=== PATIENT | female | born 1990 | race African-American/Black ===

== ENCOUNTER 2017-02-28 00:52 | Emergency (ER) | payer OTHER ==
[~2017-02-28] VITALS: Ht 167.6 cm; Wt 63.5 kg
[2017-02-28 02:00] LABS: ABSOLUTE NEUTROPHILS 4.9 thou/uL (1.4-8.2); BASOPHILS 0.5 % (0.0-2.0); EOSINOPHILS 0.7 % (0.0-3.0); HEMATOCRIT 39.1 % (37.0-47.0); HEMOGLOBIN 13.8 gm/dL (12.0-15.0); LYMPHOCYTES 34.6 % (24.0-44.0); MCHC 35.3 g/dL (28.0-37.0); MCV 79.5 fL (80.0-100.0); PLATELET COUNT 283 thou/uL (150-400); POLYS 58.2 % (36.0-66.0); RBC 4.92 mil/uL (4.20-5.00); RDW 14.4 % (10.5-14.5); WBC 8.4 thou/uL (4.0-11.0)
[2017-02-28 02:04] LABS: MANUAL DIFF NO
[2017-02-28 02:11] LABS: CALCIUM 8.9 mg/dL (8.5-10.1); CREATININE 0.8 mg/dL (0.6-1.0); POTASSIUM 3.3 mmol/L (3.5-5.1)
[2017-02-28 02:19] LABS: ABSOLUTE RETIC COUNT 0.0488 10^6/uL; OBSERVED RETIC COUNT 1.01 % (0.6-2.6)
[2017-02-28] MEDS ORDERED: PERCOCET 10-321 EACH PO (03:24)
[2017-02-28] MEDS ORDERED: MOBIC15 MG PO (03:24)
[2017-02-28 03:39] VITALS: BP 123/75
== END 2017-02-28 03:51 | disposition home or self-care (01) ==
LOC: ER 00:52
PROVIDERS: Emergency Medicine
DX: D57.00 Hb-SS disease with crisis, unspecified (principal); K50.90 Crohn's disease, unspecified, without complications; Z88.1 Allergy status to other antibiotic agents; Z88.5 Allergy status to narcotic agent

== ENCOUNTER 2017-03-06 23:22 | Emergency (ER) | payer OTHER ==
[~2017-03-06] VITALS: Ht 167.6 cm; Wt 63.5 kg
[~2017-03-06 23:22] MED LIST: MOBIC15 MG PO; PERCOCET 10-321 EACH PO
[2017-03-07] MEDS ORDERED: FLEXERIL PO (00:02)
[2017-03-07] MEDS ORDERED: FOLIC ACID1 MG PO (00:02)
[2017-03-07] MEDS ORDERED: BENTYL 20 MG TA20 M1 PO (00:03)
[2017-03-07] MEDS ORDERED: VALIUM5 MG PO (02:35)
[2017-03-07] MEDS ORDERED: PERCOCET 5-3251 EACH PO (02:35)
[2017-03-07 03:49] VITALS: BP 123/81
== END 2017-03-07 02:36 ==
LOC: ER 23:22
DX: D57.00 Hb-SS disease with crisis, unspecified (principal); K50.90 Crohn's disease, unspecified, without complications; Z88.1 Allergy status to other antibiotic agents; Z88.5 Allergy status to narcotic agent

== ENCOUNTER 2017-04-10 11:34 | Emergency (ER) | payer OTHER ==
[~2017-04-10] VITALS: Ht 167.6 cm; Wt 59.0 kg
[~2017-04-10 11:34] MED LIST changes: +BENTYL 20 MG TA20 M1 PO; +FLEXERIL PO; +FOLIC ACID1 MG PO; +PERCOCET 5-3251 EACH PO; +VALIUM5 MG PO
[2017-04-10] MEDS ORDERED: ASACOL HD800 MG PO (11:54)
[2017-04-10 13:14] LABS: ABSOLUTE NEUTROPHILS 3.4 thou/uL (1.4-8.2); BASOPHILS 0.8 % (0.0-2.0); EOSINOPHILS 0.6 % (0.0-3.0); HEMOGLOBIN 12.2 gm/dL (12.0-15.0); LYMPHOCYTES 34.8 % (24.0-44.0); MCH 28.1 pg (26.0-34.0); MCHC 34.8 g/dL (28.0-37.0); MCV 80.7 fL (80.0-100.0); PLATELET COUNT 235 thou/uL (150-400); POLYS 57.8 % (36.0-66.0); RBC 4.34 mil/uL (4.20-5.00); WBC 5.9 thou/uL (4.0-11.0)
[2017-04-10 13:18] LABS: MANUAL DIFF NO
[2017-04-10] MEDS ORDERED: TIZANIDINE HCL4 MG PO (14:49)
[2017-04-10 14:55] VITALS: BP 130/76
[2017-04-10] MEDS ORDERED: PERCOCET PO (15:10)
== END 2017-04-10 15:37 | disposition home or self-care (01) ==
LOC: ER 11:34
PROVIDERS: Nurse Practitioner
DX: M54.2 Cervicalgia (principal); M54.9 Dorsalgia, unspecified; M25.511 Pain in right shoulder; K50.90 Crohn's disease, unspecified, without complications; Z88.1 Allergy status to other antibiotic agents; Z88.5 Allergy status to narcotic agent; V49.40XA Driver injured in collision with unspecified motor vehicles in traffic accident, initial encounter; Y93.89 Activity, other specified; Y92.89 Other specified places as the place of occurrence of the external cause; Y99.8 Other external cause status

== ENCOUNTER 2017-05-17 23:25 | Emergency (ER) | payer OTHER ==
[~2017-05-17] VITALS: Ht 165.1 cm; Wt 59.0 kg
[~2017-05-17 23:25] MED LIST changes: +ASACOL HD800 MG PO; +PERCOCET PO; +TIZANIDINE HCL4 MG PO
[2017-05-17] MEDS ORDERED: PREDNISONE 20 M20 MG PO (23:50)
[2017-05-17] MEDS ORDERED: XANAX1 MG PO (23:51)
[2017-05-18] MEDS ORDERED: NORCO 5-325 TA1 EACH PO (00:25)
[2017-05-18 01:21] VITALS: BP 128/80
== END 2017-05-18 01:23 | disposition home or self-care (01) ==
LOC: ER 23:25
DX: D57.00 Hb-SS disease with crisis, unspecified (principal); K50.90 Crohn's disease, unspecified, without complications; G43.909 Migraine, unspecified, not intractable, without status migrainosus; F17.210 Nicotine dependence, cigarettes, uncomplicated; Z88.1 Allergy status to other antibiotic agents; Z88.5 Allergy status to narcotic agent

== ENCOUNTER 2017-06-16 11:55 | Emergency (ER) | payer OTHER ==
[~2017-06-16] VITALS: Ht 165.1 cm; Wt 59.0 kg
[~2017-06-16 11:55] MED LIST changes: +NORCO 5-325 TA1 EACH PO; +PREDNISONE 20 M20 MG PO; +XANAX1 MG PO
[2017-06-16 12:04] VITALS: BP 1234/96
[2017-06-16 12:47] LABS: AMP/METHAMP Negative (Negative); BARBITURATES Negative (Negative); BENZODIAZEPINES POSITIVE (Negative); COCAINE Negative (Negative); METHADONE Negative (Negative); OPIATES Negative (Negative); PCP Negative (Negative); THC POSITIVE (Negative)
[2017-06-16 14:09] LABS: ABSOLUTE NEUTROPHILS 3.8 thou/uL (1.4-8.2); BASOPHILS 0.5 % (0.0-2.0); EOSINOPHILS 1.4 % (0.0-3.0); HEMATOCRIT 38.6 % (37.0-47.0); HEMOGLOBIN 13.3 gm/dL (12.0-15.0); LYMPHOCYTES 35.3 % (24.0-44.0); MCH 27.8 pg (26.0-34.0); MCHC 34.6 g/dL (28.0-37.0); MCV 80.4 fL (80.0-100.0); MONOCYTES 7.1 % (1.0-8.0); PLATELET COUNT 310 thou/uL (150-400); POLYS 55.7 % (36.0-66.0); RBC 4.79 mil/uL (4.20-5.00); RDW 14.6 % (10.5-14.5); WBC 6.8 thou/uL (4.0-11.0)
[2017-06-16 14:11] LABS: MANUAL DIFF NO
[2017-06-16 14:15] LABS: OBSERVED RETIC COUNT 0.77 % (0.6-2.6)
[2017-06-16 14:18] LABS: ANION GAP 6 mmol/L (7-16); BUN 8 mg/dL (7-18); CALCIUM 8.6 mg/dL (8.5-10.1); CHLORIDE 105 mmol/L (98-107); CO2 29 mmol/L (21-32); CREATININE 0.8 mg/dL (0.6-1.0); GLUCOSE 96 mg/dL (74-106); POTASSIUM 3.4 mmol/L (3.5-5.1); SODIUM 140 mmol/L (136-145)
[2017-06-16 14:24] LABS: ALKALINE PHOSPHATASE 45 U/L (46-116); DIRECT BILIRUBIN < 0.1 mg/dL (<0.1-0.3); SGOT 15 U/L (15-37); SGPT 17 U/L (30-65); TOTAL BILIRUBIN 0.2 mg/dL (<0.1-1.0); TOTAL PROTEIN 7.4 g/dL (6.4-8.2)
[2017-06-16] MEDS ORDERED: PREDNISONE 20 M20 MG PO (14:48)
[2017-06-16] MEDS ORDERED: BENTYL 20 MG TA20 M1 PO (14:48)
[2017-06-20 15:12] LABS: HB-F 0 % (0.0-2.0); HGB ELECTROPH. COMMENT Note: (()); Hgb A 58.1 % (94.0-98.0); Hgb C 38.7 % (0.0)
== END 2017-06-16 15:11 | disposition home or self-care (01) ==
LOC: ER 11:55
PROVIDERS: Emergency Medicine
DX: K50.90 Crohn's disease, unspecified, without complications (principal); R19.7 Diarrhea, unspecified; M25.50 Pain in unspecified joint; G43.909 Migraine, unspecified, not intractable, without status migrainosus; F17.210 Nicotine dependence, cigarettes, uncomplicated; Z88.0 Allergy status to penicillin; Z88.5 Allergy status to narcotic agent

== ENCOUNTER 2017-08-15 23:57 | Emergency (ER) | payer OTHER ==
[~2017-08-15] VITALS: Ht 165.1 cm; Wt 59.0 kg
[2017-08-16 00:04] VITALS: BP 148/97
== END 2017-08-16 00:53 | disposition home or self-care (01) ==
LOC: ER 23:57
DX: J30.9 Allergic rhinitis, unspecified (principal); R52 Pain, unspecified; G43.909 Migraine, unspecified, not intractable, without status migrainosus; F17.210 Nicotine dependence, cigarettes, uncomplicated; Z88.1 Allergy status to other antibiotic agents; Z88.5 Allergy status to narcotic agent

== ENCOUNTER 2018-01-08 20:48 | Inpatient (IN) | payer OTHER ==
[~2018-01-08] VITALS: Ht 165.1 cm; Wt 55.6 kg
--- NOTE | ~2018-01-08 | HC ---
[facility] [address] [address] CONSULTATION Name: AYSELYNDONKAMALA L Room #: 427-P [facility] M.R.#: [id number] Admission: 01/09/18 Attend Phys: Edgardo Farooq Discharge: Date of : 86 Report #: [id number] THIS REPORT FOR: //name// CC: [facility] physician/PCP Edgardo Farooq DATE OF SERVICE: 01/09/2018 REASON FOR CONSULTATION: I was asked to evaluate concerning peritonitis following perforated prepyloric peptic ulcer with bile peritonitis in the setting of Crohn's disease and sickle cell disease. HISTORY OF PRESENT ILLNESS: The patient is a 27-year-old with underlying longstanding Crohn's disease on 20-60 mg of prednisone a day who over the last week has had GI upset with nausea and vomiting. She then developed acute onset of abdominal pain associated with low grade fever. Poor oral intake. Stools have been loose. Initially, had vomiting, but that subsided. She has been on prednisone and Asacol for Crohn's disease. No biologic agents have been given. She went to surgery today for repair of the peptic ulcer perforation with diagnostic laparoscopy and modified Jaden patch repair. Gastric ulcer biopsy was performed. Left with a AVELINO drain. Cultures were obtained. ALLERGIES: CLINDAMYCIN, AMOXICILLIN, MORPHINE. MEDICATIONS: As noted on her MAR including 20 mg of prednisone a day, mesalamine, Flexeril, folic acid, Bentyl, Xanax. She was given meropenem perioperatively. PAST MEDICAL HISTORY: Includes Crohn's disease, sickle cell disease, migraine headaches. FAMILY HISTORY: Noncontributory. SOCIAL HISTORY: Smoker of cigarettes. No significant alcohol intake. She had been residing in [place], moved back to [place] in the last year. She has not established primary care or GI care in [place] yet. REVIEW OF SYSTEMS: No cough or sputum production. She feels that her sickle cell has flared up some with joint pain. No dysuria or frequency. PHYSICAL EXAMINATION: VITAL SIGNS: Afebrile and hemodynamically stable, alert and cooperative. NG tube in place. IV access unremarkable. CHEST: Clear. HEART: Regular. ABDOMEN: Diffusely tender with rebound. [facility] [address] [address] CONSULTATION Name: KAMALA TAVERA Room #: 427-P [facility] M.R.#: [id number] Admission: 01/09/18 Attend Phys: Edgardo Farooq Discharge: Date of : 86 Report #: [id number] EXTREMITIES: Unremarkable. LABORATORY STUDIES: CT scan of the abdomen and pelvis, free air consistent with bowel perforation, moderate amount of free pelvic fluid, intrahepatic and biliary ductal dilatation. Lactate 1.5. Sodium 140, potassium 3.4, creatinine 1.1. Liver function test normal. Hemoglobin 10.5, WBC 15.9, platelet count is 355,000. Differential with 88% neutrophils, 7% lymphocytes. Urinalysis 1+ protein, 1+ ketones. Blood cultures pending. Abdominal fluid culture pending. IMPRESSION: A 27-year-old with underlying Crohn's disease who presents with gastric perforation. I am suspecting Crohn's likely culprit as cause of her perforation. We will need to await biopsy results. Recommend broad antibiotic coverage in the setting of PENICILLIN ALLERGY. We will give stress dose steroids. We will need GI followup regarding her Crohn's disease. Duration of antibiotics depend upon her progress and culture results. <ELECTRONICALLY SIGNED> By: Henok Lopez MD 01/10/18 0913 [id number] Henok Lopez MD /nt
[2018-01-08 20:52] VITALS: BP 112/76
[2018-01-08 23:10] LABS: ABSOLUTE NEUTROPHILS 14.1 thou/uL (1.4-8.2); BASOPHILS 0.4 % (0.0-2.0); EOSINOPHILS 0.7 % (0.0-3.0); HEMATOCRIT 30.2 % (37.0-47.0); HEMOGLOBIN 10.5 gm/dL (12.0-15.0); LYMPHOCYTES 7.6 % (24.0-44.0); MCH 25.8 pg (26.0-34.0); MCHC 34.6 g/dL (28.0-37.0); MCV 74.4 fL (80.0-100.0); MONOCYTES 2.7 % (1.0-8.0); PLATELET COUNT 355 thou/uL (150-400); POLYS 88.6 % (36.0-66.0); RBC 4.06 mil/uL (4.20-5.00); RDW 17.1 % (10.5-14.5); WBC 15.9 thou/uL (4.0-11.0)
[2018-01-08 23:11] LABS: URINE BLOOD 2+ (Negative); URINE CLARITY SL CLOUDY; URINE COLOR YELLOW; URINE GLUCOSE-RANDOM* NEGATIVE (Negative); URINE KETONES 1+ (Negative); URINE LEUKOCYTES-REFLEX NEGATIVE (Negative); URINE NITRITE-REFLEX NEGATIVE (Negative); URINE PROTEIN (DIPSTICK) 1+ (Negative); URINE SPECIFIC GRAVITY >= 1.030 (1.005-1.035); URINE UROBILINOGEN 0.2 E.U./dl (0.2-1.0)
[2018-01-08 23:18] LABS: CALCIUM 8.8 mg/dL (8.5-10.1); CREATININE 1.1 mg/dL (0.6-1.0); ICTOTEST (BILI CONFIRMATORY) Negative (Negative); POTASSIUM 3.4 mmol/L (3.5-5.1); URINE BILIRUBIN NEGATIVE (Negative)
[2018-01-08 23:19] LABS: BACTERIA-REFLEX 1-9 Few /HPF (None Seen); CASTS None Seen /LPF (None Seen); CRYSTALS None Seen /LPF (None Seen); MUCUS 0-3 Light strn/LPF (None Seen); SQUAMOUS >10 Many /LPF (0-3); TRANSITIONAL EPITHEL CELL 4-10 Moderate /LPF (None Seen); URINE RBC 3-10 Few /HPF (0-2); URINE WBC-REFLEX 0-5 Rare /HPF (0-5)
[2018-01-08 23:24] LABS: ALBUMIN 3.1 g/dL (3.4-5.0); TOTAL BILIRUBIN 0.3 mg/dL (<0.1-1.0); TOTAL PROTEIN 6.9 g/dL (6.4-8.2)
[2018-01-09 04:10] VITALS: BP 131/85
[2018-01-09 07:33] VITALS: BP 108/66
[2018-01-09 16:00] VITALS: BP 110/73
[2018-01-09 19:26] VITALS: BP 126/77
[2018-01-10] VITALS: BP 122/81
[2018-01-10 05:28] LABS: HEMATOCRIT 24.5 % (37.0-47.0); MCH 25.7 pg (26.0-34.0); MCV 75.6 fL (80.0-100.0); RBC 3.24 mil/uL (4.20-5.00); RDW 17.1 % (10.5-14.5); WBC 10.5 thou/uL (4.0-11.0)
[2018-01-10 05:32] LABS: HEMOGLOBIN 8.3 gm/dL (12.0-15.0)
[2018-01-10 05:39] LABS: ALBUMIN 2.1 g/dL (3.4-5.0); CALCIUM 7.8 mg/dL (8.5-10.1); CREATININE 0.7 mg/dL (0.6-1.0); PHOSPHORUS 2.8 mg/dL (2.5-4.9); POTASSIUM 3.5 mmol/L (3.5-5.1)
[2018-01-10 06:00] VITALS: BP 125/80
[2018-01-10 20:00] VITALS: BP 121/87
[2018-01-11 04:30] VITALS: BP 121/84
[2018-01-11 07:45] VITALS: BP 136/71
[2018-01-11 08:03] LABS: HEMATOCRIT 25.7 % (37.0-47.0); HEMOGLOBIN 8.7 gm/dL (12.0-15.0); MCH 25.5 pg (26.0-34.0); MCHC 33.7 g/dL (28.0-37.0); MCV 75.6 fL (80.0-100.0); RBC 3.4 mil/uL (4.20-5.00); RDW 17.1 % (10.5-14.5)
[2018-01-11 08:10] LABS: CALCIUM 8.1 mg/dL (8.5-10.1); CREATININE 0.8 mg/dL (0.6-1.0)
[2018-01-11 08:11] LABS: POTASSIUM 2.9 mmol/L (3.5-5.1)
[2018-01-11 16:00] VITALS: BP 120/81
[2018-01-11 20:19] VITALS: BP 124/81
[2018-01-12 03:40] VITALS: BP 125/88
[2018-01-12 04:34] LABS: HEMATOCRIT 27.4 % (37.0-47.0); HEMOGLOBIN 9.4 gm/dL (12.0-15.0); MCH 25.7 pg (26.0-34.0); MCHC 34.2 g/dL (28.0-37.0); MCV 75.2 fL (80.0-100.0); RBC 3.65 mil/uL (4.20-5.00); WBC 8.6 thou/uL (4.0-11.0)
[2018-01-12 04:43] LABS: ALBUMIN 2.5 g/dL (3.4-5.0); CREATININE 0.7 mg/dL (0.6-1.0); PHOSPHORUS 1.4 mg/dL (2.5-4.9)
[2018-01-12 08:10] VITALS: BP 130/91
[2018-01-12 10:00] VITALS: BP 130/91
[2018-01-12 20:14] VITALS: BP 136/97
== END 2018-01-12 22:50 | disposition left against medical advice (07) | DRG 329 ==
LOC: ER 20:48 → EROBS 01-09 02:40 → 4E 01-09 02:40 → TBACV 01-09 04:40 → 4E 01-09 04:59 → TBACV 01-09 04:59 → 4E 01-09 07:25
PROVIDERS: Emergency Medicine; Hospitalist; Surgery
PROC: 0DU947Z Supplement Duodenum with Autologous Tissue Substitute, Percutaneous Endoscopic Approach (ICD-10-PCS; principal; 2018-01-09)
PROC: 0DB64ZX Excision of Stomach, Percutaneous Endoscopic Approach, Diagnostic (ICD-10-PCS; principal; 2018-01-09)
DX: K25.5 Chronic or unspecified gastric ulcer with perforation (principal); K65.9 Peritonitis, unspecified; K50.90 Crohn's disease, unspecified, without complications; D57.1 Sickle-cell disease without crisis; K21.9 Gastro-esophageal reflux disease without esophagitis; F41.9 Anxiety disorder, unspecified; Z53.21 Procedure and treatment not carried out due to patient leaving prior to being seen by health care provider; F17.210 Nicotine dependence, cigarettes, uncomplicated; G43.909 Migraine, unspecified, not intractable, without status migrainosus; Z79.1 Long term (current) use of non-steroidal anti-inflammatories (NSAID); Z88.1 Allergy status to other antibiotic agents; Z88.5 Allergy status to narcotic agent; Z79.899 Other long term (current) drug therapy; Z88.0 Allergy status to penicillin
CPT/HCPCS: 10783; 50101; 62110; 62900; 65002; 70005

== ENCOUNTER 2018-01-13 00:11 | Inpatient (IN) | payer OTHER ==
[~2018-01-13] VITALS: Ht 165.1 cm; Wt 59.0 kg
[2018-01-13 00:36] VITALS: BP 133/94
[2018-01-13 03:40] VITALS: BP 140/100
[2018-01-13 06:46] VITALS: BP 142/68
[2018-01-13 07:19] VITALS: BP 114/59
[2018-01-13 09:11] LABS: HEMATOCRIT 28.9 % (37.0-47.0); HEMOGLOBIN 10.1 gm/dL (12.0-15.0); MCH 25.8 pg (26.0-34.0); MCHC 34.8 g/dL (28.0-37.0); MCV 74.3 fL (80.0-100.0); RBC 3.89 mil/uL (4.20-5.00); RDW 17.5 % (10.5-14.5); WBC 8.1 thou/uL (4.0-11.0)
[2018-01-13 09:20] LABS: CALCIUM 8.2 mg/dL (8.5-10.1); CREATININE 0.7 mg/dL (0.6-1.0); POTASSIUM 3.1 mmol/L (3.5-5.1)
[2018-01-13 16:28] VITALS: BP 113/74
[2018-01-13 19:50] VITALS: BP 114/63
[2018-01-14 08:28] VITALS: BP 134/77
[2018-01-14 15:42] VITALS: BP 118/81
[2018-01-14 15:45] LABS: HEMATOCRIT 28.6 % (37.0-47.0); HEMOGLOBIN 9.8 gm/dL (12.0-15.0); MCH 25.5 pg (26.0-34.0); MCHC 34.1 g/dL (28.0-37.0); MCV 74.8 fL (80.0-100.0); RBC 3.83 mil/uL (4.20-5.00); RDW 17.4 % (10.5-14.5); WBC 8.4 thou/uL (4.0-11.0)
[2018-01-14 19:20] VITALS: BP 118/64
[2018-01-15 04:00] VITALS: BP 152/84
[2018-01-15 07:17] VITALS: BP 124/85
[2018-01-15 07:47] LABS: OBSERVED RETIC COUNT 1.11 % (0.6-2.6)
[2018-01-15 16:20] VITALS: BP 121/71
[2018-01-15 19:27] VITALS: BP 117/71
[2018-01-16 04:01] VITALS: BP 117/80
[2018-01-16 08:00] VITALS: BP 136/83
[2018-01-16] MEDS ORDERED: OXYCODONE HCL30 MG PO (10:37)
[2018-01-16] MEDS ORDERED: XANAX1 MG PO (10:37)
[2018-01-16] MEDS ORDERED: PANTOPRAZOLE SO40 M1 PO (10:38)
[2018-01-16 11:07] VITALS: BP 136/83
== END 2018-01-16 16:00 | disposition home or self-care (01) | DRG 380 ==
LOC: ER 00:11 → EROBS 01:48 → 4W 01:48
PROVIDERS: Hospitalist; Nurse Practitioner Family
DX: K25.5 Chronic or unspecified gastric ulcer with perforation (principal); K65.3 Choleperitonitis; K50.90 Crohn's disease, unspecified, without complications; D57.1 Sickle-cell disease without crisis; F41.9 Anxiety disorder, unspecified; F17.210 Nicotine dependence, cigarettes, uncomplicated; G43.909 Migraine, unspecified, not intractable, without status migrainosus; K21.9 Gastro-esophageal reflux disease without esophagitis; Z53.21 Procedure and treatment not carried out due to patient leaving prior to being seen by health care provider; Z88.6 Allergy status to analgesic agent; Z88.1 Allergy status to other antibiotic agents; Z79.899 Other long term (current) drug therapy
CPT/HCPCS: 10040

== ENCOUNTER 2018-02-25 19:47 | Emergency (ER) | payer OTHER ==
[~2018-02-25] VITALS: Ht 165.1 cm; Wt 56.7 kg
[~2018-02-25 19:47] MED LIST changes: +OXYCODONE HCL30 MG PO; +PANTOPRAZOLE SO40 M1 PO
[2018-02-25 21:37] LABS: ABSOLUTE NEUTROPHILS 5.5 thou/uL (1.4-8.2); BASOPHILS 0.6 % (0.0-2.0); EOSINOPHILS 0.9 % (0.0-3.0); HEMATOCRIT 34.4 % (37.0-47.0); HEMOGLOBIN 11.8 gm/dL (12.0-15.0); LYMPHOCYTES 23.9 % (24.0-44.0); MCH 26.9 pg (26.0-34.0); MCHC 34.3 g/dL (28.0-37.0); MCV 78.4 fL (80.0-100.0); MONOCYTES 5.7 % (1.0-8.0); PLATELET COUNT 296 thou/uL (150-400); POLYS 68.9 % (36.0-66.0); RBC 4.38 mil/uL (4.20-5.00)
[2018-02-25 21:38] LABS: URINE BILIRUBIN NEGATIVE (Negative); URINE BLOOD NEGATIVE (Negative); URINE CLARITY CLEAR; URINE COLOR YELLOW; URINE GLUCOSE-RANDOM* NEGATIVE (Negative); URINE KETONES NEGATIVE (Negative); URINE LEUKOCYTES-REFLEX NEGATIVE (Negative); URINE NITRITE-REFLEX NEGATIVE (Negative); URINE PROTEIN (DIPSTICK) NEGATIVE (Negative); URINE UROBILINOGEN 0.2 E.U./dl (0.2-1.0)
[2018-02-25 21:52] LABS: CALCIUM 8.5 mg/dL (8.5-10.1); CREATININE 0.8 mg/dL (0.6-1.0); POTASSIUM 3.9 mmol/L (3.5-5.1)
[2018-02-25 21:58] LABS: TOTAL BILIRUBIN 0.2 mg/dL (<0.1-1.0)
== END 2018-02-26 00:26 | disposition home or self-care (01) ==
LOC: ER 19:47
PROVIDERS: Physician Assistant
DX: R10.33 Periumbilical pain (principal); K50.90 Crohn's disease, unspecified, without complications; F41.9 Anxiety disorder, unspecified; K21.9 Gastro-esophageal reflux disease without esophagitis; F17.210 Nicotine dependence, cigarettes, uncomplicated; Z88.1 Allergy status to other antibiotic agents; Z88.5 Allergy status to narcotic agent